=== PATIENT | female | born 1970 | race Two or more races ===

== ENCOUNTER 2018-07-28 10:14 | Outpatient (CLI) | payer OTHER ==
[~2018-07-28 10:14] MED LIST: ABILIFY10 MG PO; CLONAZEPAM0.5 MG PO; COGENT PO; LAMICTAL150 MG PO; PROZAC10 MG PO; SYNTHROID112 MCG PO
== END 2018-07-28 10:33 | disposition home or self-care (01) ==
LOC: SONOGRAMA 10:14 → MAMO-SONO 10:45
DX: N84.0 Polyp of corpus uteri (principal)

== ENCOUNTER 2019-03-23 08:27 | Outpatient (CLI) | payer OTHER | END 2019-03-23 09:17 | disposition home or self-care (01) | LOC: LAB 08:27 | DX: D50.0 Iron deficiency anemia secondary to blood loss (chronic) (principal); D51.3 Other dietary vitamin B12 deficiency anemia; E03.8 Other specified hypothyroidism; F06.31 Mood disorder due to known physiological condition with depressive features; D50.8 Other iron deficiency anemias; D51.8 Other vitamin B12 deficiency anemias; K90.89 Other intestinal malabsorption; R97.0 Elevated carcinoembryonic antigen [CEA]; R97.8 Other abnormal tumor markers; M35.8 Other specified systemic involvement of connective tissue ==

== ENCOUNTER 2019-05-25 05:28 | Day surgery (SDC) | payer OTHER ==
[~2019-05-25 05:28] MED LIST changes: +BENZTROPINE ME0.5 MG PO; +CALTRATE 600 +1 EACH; +INTEGRA F CAPS1 EACH PO; +NEURIN SL
== END 2019-05-25 13:30 | disposition home or self-care (01) ==
LOC: CIR.AMB 05:28
DX: N84.0 Polyp of corpus uteri (principal)

== ENCOUNTER 2019-09-19 08:13 | Outpatient (CLI) | payer OTHER | END 2019-09-19 13:03 | disposition home or self-care (01) | LOC: LAB 08:13 | PROVIDERS: ATTEND Internal Medicine Hematology & Oncology | DX: D50.8 Other iron deficiency anemias (principal); I10 Essential (primary) hypertension; R70.0 Elevated erythrocyte sedimentation rate; E55.9 Vitamin D deficiency, unspecified; E03.8 Other specified hypothyroidism; C56.9 Malignant neoplasm of unspecified ovary; R97.8 Other abnormal tumor markers; R97.1 Elevated cancer antigen 125 [CA 125]; R97.0 Elevated carcinoembryonic antigen [CEA]; D50.0 Iron deficiency anemia secondary to blood loss (chronic); D51.3 Other dietary vitamin B12 deficiency anemia; F06.31 Mood disorder due to known physiological condition with depressive features ==

== ENCOUNTER 2020-07-19 15:43 | Outpatient (CLI) | payer OTHER | END 2020-07-19 15:53 | disposition home or self-care (01) | LOC: RAD 15:43 | PROVIDERS: ATTEND Internal Medicine | DX: M19.90 Unspecified osteoarthritis, unspecified site (principal) ==

== ENCOUNTER 2021-10-04 09:25 | Outpatient (CLI) | payer OTHER | END 2021-10-04 09:26 | disposition home or self-care (01) | LOC: SONOGRAMA 09:25 | PROVIDERS: ATTEND Internal Medicine Endocrinology, Diabetes & Metabolism | DX: E04.9 Nontoxic goiter, unspecified (principal) ==

== ENCOUNTER 2023-03-23 08:45 | Outpatient (CLI) | payer OTHER | END 2023-03-23 08:56 | disposition home or self-care (01) | LOC: SONOGRAMA 08:45 | PROVIDERS: ATTEND Internal Medicine Endocrinology, Diabetes & Metabolism | DX: E04.9 Nontoxic goiter, unspecified (principal); E06.3 Autoimmune thyroiditis ==